=== PATIENT | female | born 1995 | race Caucasian/White ===

== ENCOUNTER 2018-06-11 08:39 | Emergency (ER) | payer MEDICAID ==
[~2018-06-11] VITALS: Ht 157.5 cm; Wt 68.2 kg
[2018-06-11] MEDS ORDERED: ONDA4 PO (08:44)
[2018-06-11] MEDS ORDERED: PREN-18 PO (08:44)
[2018-06-11 10:16] LABS: BASOPHILS % (AUTO) 0.5 % (0.0-2.0); EOSINOPHILS % (AUTO) 1.1 % (1.0-6.0); HEMATOCRIT 36.3 % (36-46); HEMOGLOBIN 12.1 g/dL (12.0-16.0); LYMPHOCYTES # (AUTO) 2.8 K/uL (1.0-4.8); MEAN CORPUSCULAR HEMOGLOBIN 25.7 pg (26.0-34.0); MEAN CORPUSCULAR HGB CONC 33.4 G/dL (31.0-37.0); MEAN CORPUSCULAR VOLUME 77 fL (80-100); MONOCYTES # (AUTO) 0.5 K/uL (0.1-1.0); MONOCYTES % (AUTO) 4.5 % (2.0-9.0); NEUTROPHILS # (AUTO) 8.6 K/uL (1.8-7.7); NEUTROPHILS % (AUTO) 70.9 % (40.0-70.0); PLATELET COUNT (AUTO) 337 K/uL (150-450); RED BLOOD CELL COUNT(AUTO) 4.73 MIL/uL (4.00-5.20); RED CELL DISTRIBUTION WIDTH 14.5 % (11.5-14.5)
[2018-06-11] MEDS ORDERED: ACETAMINOPHEN 325 MG TABLET PO ONE (11:45)
[2018-06-11 14:52] VITALS: BP 132/80
== END 2018-06-11 15:00 | disposition home or self-care (01) ==
LOC: EMS 08:39
DX: O20.0 Threatened abortion (principal); Z3A.11 11 weeks gestation of pregnancy; Z79.899 Other long term (current) drug therapy
CPT/HCPCS: 76801; 76817; 86901

== ENCOUNTER 2024-02-10 17:44 | Emergency (ER) | payer MEDICAID, OTHER ==
[~2024-02-10] VITALS: Ht 160 cm; Wt 68.2 kg
[~2024-02-10 17:44] MED LIST: ONDA-104 PO; PREN-18 PO
[2024-02-10 18:02] VITALS: BP 131/83; PULSE 86; RESP 18; TEMP 98.1; O2SAT 98
[2024-02-10 18:34] LABS: BASOPHILS % (AUTO) 0.4 % (0.0-2.0); HEMATOCRIT 36.5 % (36-46); HEMOGLOBIN 12.2 g/dL (12.0-16.0); LYMPHOCYTES # (AUTO) 3.3 K/uL (1.0-4.8); LYMPHOCYTES % (AUTO) 30.2 % (22.0-44.0); MEAN CORPUSCULAR HEMOGLOBIN 27.1 pg (26.0-34.0); MEAN CORPUSCULAR HGB CONC 33.4 G/dL (31.0-37.0); MEAN CORPUSCULAR VOLUME 81 fL (80-100); MONOCYTES # (AUTO) 0.6 K/uL (0.1-1.0); MONOCYTES % (AUTO) 5.2 % (2.0-9.0); NEUTROPHILS # (AUTO) 6.9 K/uL (1.8-7.7); NEUTROPHILS % (AUTO) 62.2 % (40.0-70.0); PLATELET COUNT (AUTO) 310 K/uL (150-450); RED CELL DISTRIBUTION WIDTH 12.9 % (11.5-14.5); WHITE BLOOD COUNT (AUTO) 11.1 K/uL (4.5-11.0)
[2024-02-10 18:56] LABS: HCG,QUANTITATIVE < 1 mIU/mL (0-6)
[2024-02-10 20:33] LABS: ANION GAP 13 mmol/L (8-16); CARBON DIOXIDE 25 mmol/L (22-29); CHLORIDE 101 mmol/L (98-107); CREATININE 0.72 mg/dL (0.60-1.30); GLUCOSE,RANDOM 96 mg/dL (70-110); POTASSIUM 4.1 mmol/L (3.5-5.1); SODIUM SERUM 139 mmol/L (136-145); UREA NITROGEN, BLOOD 11 mg/dL (7-18)
[2024-02-10 20:34] LABS: CALCIUM, TOTAL 9.1 mg/dL (8.8-10.5); GLOMERULAR FILTR. RATE CALC > 60 mL/min (>60)
== END 2024-02-10 22:12 | disposition home or self-care (01) ==
LOC: EMS 17:44
DX: N92.1 Excessive and frequent menstruation with irregular cycle (principal); R10.2 Pelvic and perineal pain
CPT/HCPCS: 76856; 80048; 84702; 85025; 99284